=== PATIENT | female | born 1950 | race Caucasian/White ===

== ENCOUNTER 2019-07-19 12:58 | Inpatient (IN) | payer OTHER, MEDICAID ==
[2019-07-19] VITALS (7 sets, daily range): BP systolic 99–144; BP diastolic 57–90
[~2019-07-19] VITALS: Ht 162.6 cm; Wt 68.5 kg
[~2019-07-19 12:58] MED LIST: ASPIR 8181 MG PO; ATORVASTATIN CA40 MG PO; CHANTIX1 MG PO; HYDROCHLOROTHIA25 M2 PO; LEVAQUIN 750 M750 MG PO; LIPITOR 20 MG T20 M1 PO; LISINOPRIL10 MG PO; LOPRESSOR50 PO; SYNTHROID137 MCG PO
[2019-07-19] MEDS ORDERED: PLAVIX 75 MG TA75 MG PO (13:05)
[2019-07-19 13:50] LABS: ABSOLUTE BASOPHILS 0.1 thou/uL (0.0-0.2); ABSOLUTE EOSINOPHILS 0.3 thou/uL (0.0-0.7); ABSOLUTE LYMPHOCYTES 3.4 thou/uL (0.8-5.3); ABSOLUTE MONOCYTES 0.7 thou/uL (0.0-1.2); ABSOLUTE NEUTROPHILS 11.3 thou/uL (1.6-8.1); BASOPHILS 0.8 %; EOSINOPHILS 2.1 %; HEMATOCRIT 42.8 % (37.0-47.0); LYMPHOCYTES 21.5 %; MCH 30.8 pg (26.0-34.0); MCHC 34.9 g/dL (28.0-37.0); MCV 88.1 fL (80.0-100.0); MONOCYTES 4.1 %; MPV 7.3 fl. (7.2-11.1); NUCLEATED RBCS 0 /100WBC; PLATELET COUNT* 381 thou/uL (150-400); POLYS 71.5 %; RBC 4.86 mil/uL (4.20-5.00); RDW-CV 13.8 % (10.5-14.5); WBC 15.8 thou/uL (4.0-11.0)
[2019-07-19 13:55] LABS: APTT 26.3 Seconds (25.0-31.3); CALCIUM 9.4 mg/dL (8.5-10.1); INR 1.2; POTASSIUM 4.1 mmol/L (3.5-5.1)
[2019-07-19 14:08] LABS: ALBUMIN 4.1 g/dL (3.4-5.0); MAGNESIUM 1.5 mg/dL (1.8-2.4); TOTAL BILIRUBIN 0.5 mg/dL (<0.1-1.0); TOTAL PROTEIN 8.2 g/dL (6.4-8.2)
--- NOTE | 2019-07-19 14:19 | EKG ---
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 : 1950 Requested By: Tico Baker Order Number: [id number] MD: Juan Maurer Measurements Intervals [place] Rate: 116 P: 61 [place]: 151 QRS: 28 QRSD: 79 T: 64 QT: 335 QTc: 466 Interpretive Statements Sinus tachycardia early repolarization Artifact in lead(s) I,II,III,aVR,aVL,aVF Compared to ECG 02/06/2017 17:16:57 no change Electronically Signed On 07-19-2019 14:18:43 HOB MILL OPERATOR by Juan Maurer [email or web address] <ELECTRONICALLY SIGNED> By: Juan Maurer MD, FAC 07/19/19 1418 1316 1316 Juan Maurer MD, [facility] /EPI
[2019-07-19 14:33] LABS: INFLUENZA A ANTIGEN Negative (Negative); INFLUENZA B ANTIGEN Negative (Negative)
[2019-07-19 15:36] LABS: AMP/METHAMP Negative (Negative); BARBITURATES Negative (Negative); BENZODIAZEPINES Negative (Negative); COCAINE Negative (Negative); METHADONE Negative (Negative); OPIATES Negative (Negative); PCP Negative (Negative); THC Negative (Negative)
[2019-07-19] MEDS ORDERED: TOPROL XL50 MG PO (19:00)
[2019-07-19] MEDS ORDERED: ZETIA10 MG PO (19:01)
[2019-07-19] MEDS ORDERED: SPIRONOLACTONE25 MG PO (19:01)
[2019-07-19] MEDS ORDERED: PROAIR HFA8.5 GM INH (19:02)
[2019-07-19] MEDS ORDERED: LEVO-T100 MCG PO (19:02)
[2019-07-20] VITALS (17 sets, daily range): BP systolic 89–108; BP diastolic 42–62
[2019-07-20 04:59] LABS: HEMATOCRIT 38.4 % (37.0-47.0); HEMOGLOBIN 13.3 gm/dL (12.0-15.0); MCH 30.7 pg (26.0-34.0); MCHC 34.8 g/dL (28.0-37.0); MCV 88.2 fL (80.0-100.0); MPV 7.8 fl. (7.2-11.1); RBC 4.35 mil/uL (4.20-5.00); RDW-CV 13.7 % (10.5-14.5)
[2019-07-20 05:28] LABS: CHOLESTEROL 182 mg/dL (<200); HDL CHOLESTEROL 36 mg/dL (>40); LDL CHOLESTEROL 124 mg/dL (<100); TC:HDL 5.1 Ratio (Not establshd); TRIGLYCERIDE 114 mg/dL (<150); VLDL 23 mg/dL (<40)
[2019-07-20 05:29] LABS: SERUM ASSESSMENT CLEAR
[2019-07-20 05:34] LABS: ALBUMIN 3.5 g/dL (3.4-5.0); CALCIUM 9.2 mg/dL (8.5-10.1); CREATININE 0.8 mg/dL (0.6-1.3); MAGNESIUM 1.7 mg/dL (1.8-2.4); PHOSPHORUS* 4.1 mg/dL (2.5-4.9); POTASSIUM 4.4 mmol/L (3.5-5.1)
--- NOTE | 2019-07-20 08:56 | CON ---
[address] [address] CONSULTATION Name: SEAN SWARTZ Room: [address] IN .R.#: [id number] Admission: 07/19/19 Attend Phys: Corey Babcock Discharge: Date of : 52 Report #: [id number] THIS REPORT FOR: //name// cc: Melina Cortez Tara DO ~ THIS REPORT FOR: //name// CC: Corey Verma DATE OF SERVICE: 07/19/2019 CARDIOLOGY CONSULTATION HISTORY OF PRESENT ILLNESS: The patient is a 68-year-old single white female who I was asked to see in the Emergency Room today after she complained of chest pain. The old records are not available. However, the patient states that she presented in February with chest pain. She was admitted to [facility]. The next day, she had a stent placed in her LAD that was 2.5 mm x 15 mm long. This was performed via the radial approach. She has been on aspirin and Plavix since that time. Unfortunately, she continues to smoke. She does get short of breath with exertion, and has a cough. Recently, her shortness of breath has gotten worse. She does note occasional tightness in her chest. It is not related to activity. She has had no bleeding. She finally came to the Emergency Room today and was admitted. She does complain of fatigue. She has occasional flutter in her heart, but no syncope. She has had no edema. 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 She has had a history of hysterectomy, cholecystectomy, appendectomy, tubal ligation, broken ankle requiring surgery, hypertension, and hyperlipidemia. CURRENT MEDICATIONS: Consist of aspirin, Plavix, hydrochlorothiazide, Synthroid, lisinopril, metoprolol. ALLERGIES: SHE HAS ALLERGY TO MORPHINE. FAMILY HISTORY: Negative for heart disease. SOCIAL HISTORY: She is , lives in [place]. Smokes less than half pack of cigarettes a day. No alcohol abuse. REVIEW OF SYSTEMS: No history of stroke. She does have a history of COPD. She is on oxygen at nighttime, uses a nebulizer and inhaler. No history of liver disease, kidney disease, cancer, psychiatric illness, [place] [address] CONSULTATION Name: SEAN SWARTZ Room: [address]#: [id number] Admission: 07/19/19 Attend Phys: Corey Babcock Discharge: Date of : 52 Report #: [id number] PHYSICAL EXAMINATION: GENERAL: Revealed a middle-aged female, who appeared in no acute distress. VITAL SIGNS: She had a blood pressure of 100/60, pulse is 100. She is afebrile. HEENT: She was anicteric. Conjunctivae pink. Mucous membranes moist. NECK: Veins nondistended. No carotid bruits. CHEST: Clear to auscultation. CARDIOVASCULAR: Regular rate and rhythm. ABDOMEN: Soft. EXTREMITIES: Had no edema. Posterior tibial pulse 2+ bilaterally. SKIN: Warm and dry. NEUROLOGIC: Nonfocal. RADIOLOGICAL DATA: ECG shows a sinus rhythm. There was evidence of previous anterior infarction with nonspecific ST-T wave changes noted. Her workup in the Emergency Room today, she had portable chest x-ray that showed heart size and some atelectasis. CT scan of the chest using a PE protocol showed evidence of COPD with blebs, no pulmonary embolus. LABORATORY WORK: Sodium 142, creatinine 1.0, glucose 186. Liver function studies were normal. Troponin elevated at 0.68. White blood cell count 15.8, hemoglobin 15.0. IMPRESSION AND RECOMMENDATIONS: 1. Non-ST elevation myocardial infarction. Previous stent. Recommend repeat cardiac catheterization. 2. Hypertension. The patient has been on a beta david and JADYN inhibitor. 3. Hyperlipidemia. The patient is on a statin drug. 4. Chronic obstructive pulmonary disease. 5. Tobacco abuse. <ELECTRONICALLY SIGNED> By: Juan Maurer MD, FACC 07/20/19 0856 1615 0246Dailya Maurer MD, FACC /nt
--- NOTE | 2019-07-20 09:57 | EKG ---
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: SANDY : 1950 Requested By: Juan Maurer Order Number: [id number] Vitor MD: Juan Maurer Measurements Intervals [place] Rate: 95 P: 54 WI: 155 QRS: 10 QRSD: 92 T: 73 QT: 365 QTc: 459 Interpretive Statements Sinus rhythm Compared to ECG 07/19/2019 13:16:37 Sinus tachycardia no longer present Early repolarization no longer present Electronically Signed On 07-20-2019 9:56:[address] MAG[address]RATE by Juan Maurer [email or web address] <ELECTRONICALLY SIGNED> By: Juan Maurer MD, FAC 07/20/19 0956 4 4 Juan Maurer MD, [facility] /EPI
[2019-07-21] VITALS (16 sets, daily range): BP systolic 94–192; BP diastolic 50–102
[2019-07-21 02:07] LABS: GLYCOHEMOGLOBIN (HGB A1C) 5.9 % (4.8-5.6)
[2019-07-21 05:41] LABS: ABSOLUTE BASOPHILS 0.1 thou/uL (0.0-0.2); ABSOLUTE EOSINOPHILS 0.1 thou/uL (0.0-0.7); ABSOLUTE LYMPHOCYTES 1.5 thou/uL (0.8-5.3); ABSOLUTE MONOCYTES 0.9 thou/uL (0.0-1.2); ABSOLUTE NEUTROPHILS 13.7 thou/uL (1.6-8.1); BASOPHILS 0.5 %; EOSINOPHILS 0.7 %; HEMATOCRIT 37.4 % (37.0-47.0); HEMOGLOBIN 12.9 gm/dL (12.0-15.0); LYMPHOCYTES 9.2 %; MCH 30.6 pg (26.0-34.0); MCHC 34.5 g/dL (28.0-37.0); MCV 88.5 fL (80.0-100.0); MONOCYTES 5.4 %; MPV 7.7 fl. (7.2-11.1); NUCLEATED RBCS 0 /100WBC; PLATELET COUNT* 264 thou/uL (150-400); POLYS 84.2 %; RBC 4.22 mil/uL (4.20-5.00); RDW-CV 13.8 % (10.5-14.5); WBC 16.3 thou/uL (4.0-11.0)
[2019-07-21 05:48] LABS: CALCIUM 8.3 mg/dL (8.5-10.1); CREATININE 0.8 mg/dL (0.6-1.3); POTASSIUM 3.5 mmol/L (3.5-5.1)
--- NOTE | 2019-07-21 12:10 | EKG ---
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: HARDY : 1950 Requested By: Corey Romero Order Number: [id number] Reading MD: Juan Maurer Measurements Intervals [place] Rate: 140 P: 53 [place]: 179 QRS: 24 QRSD: 84 T: 71 QT: 246 QTc: 376 Interpretive Statements Sinus tachycardia poor r wave progression ST elevation, consider early repolarization Baseline wander in lead(s) I,III,aVL Compared to ECG 07/20/2019 08:15:07 Sinus rhythm no longer present Electronically Signed On 07-21-2019 12:09:11 MEDICAL CHIEF TECHNICIAN by Juan Maurer [email or web address] <ELECTRONICALLY SIGNED> By: Juan Maurer MD, [facility] 07/21/19 1209 0356 Juan Maurer MD, [facility] /EPI
--- NOTE | 2019-07-21 13:01 | CARD ---
[address] [address] CARDIAC CATH REPORT Name: SEAN SWARTZ Room: [address] IN [facility]#: [id number] Admission: 07/19/19 Attend Phys: Corey Babcock Discharge: Date of : 52 Report #: [id number] THIS REPORT FOR: //name// cc: Melina Cortez Tara DO ~ THIS REPORT FOR: //name// APPROVED REPORT Study performed: 07/20/2019 12:52:40 Patient Details Patient Status: In-Patient Room #: 228 The patient is a 68 year-old female Event Personnel Sung Merritt RTR Monitor, Laurie Hedrick RN RN, Georgiana Falk RTR Scrub, Fransico Chandra Eligibility Supervisor Procedures Performed Right radial artery access, Left Heart Cath w/or w/o Coronaries, Hemostasis with Vasc band Admission/Lab Medications/Medications given during procedure Fentanyl IV 25 mcg, Midazolam (Versed) IV 1 mg, Lidocaine Subcut 4 ml, Nitroglycerin IA 400 mcg, Verapamil IA 5 mg Procedure Narrative The patient was brought electively to the Cardiac Catheterization Laboratory and was prepped and draped in a sterile manner. The right wrist was infiltrated with 2% Lidocaine subcutaneous anesthesia. A 6F Slender Glidesheath sheath was inserted into the right radial artery. Coronary angiography was performed using coronary diagnostic catheters. The right coronary system was accessed and visualized with a Diagnostic [place] 4.0 6fr catheter. The left coronary system was accessed and visualized with a Diagnostic [place] 4.0 6fr catheter. The left ventricle was accessed and visualized with a Diagnostic [place] 4.0 6fr catheter. The patient tolerated the procedure well and there were no complications associated with the procedure. There was no hematoma. Radial artery hemostasis with a radial Vasc band. Intraoperative Conscious Sedation Sedation start time: 1349 Case end Time: 1405 [place] [address] CARDIAC CATH REPORT Name: SEAN SWRATZ Room: [address] IN [facility].#: [id number] Admission: 07/19/19 Attend Phys: Corey Babcock Discharge: Date of : 52 Report #: [id number] Fentanyl 50 mcg Versed 1 mg Fluoro Time: 4.3 minutes Dose: DAP 41732 cGycm2 738.98 mGy Contrast Type and Amount: Visipaque 65 ml Coronary Angiography The patient's coronary anatomy is right dominant. Diagnostic Cath Left Main The left main coronary artery is normal and bifurcates into a left anterior descending and circumflex coronary artery. LAD There is mild 10% plaquing in the mid and distal LAD. There is a widely patent stents in the mid LAD. Diagonal 1 The first diagonal branch is normal. Diagonal 2 The second diagonal branches 10% plaque proximally. Circumflex The circumflex was coronary artery is normal in its proximal mid and distal portion. OM1 A first obtuse marginal branch is 10% narrowing proximally. Right Coronary The right coronary artery is 30% narrowed proximally 50% narrowed in the midportion. R PDA The right PDA has a 50% proximal narrowing and 10% mid narrowing. RPLV The posterior lateral LV branch has 20% proximal narrowing. Hemodynamics The aortic pressure is 97/64 mmHg with a mean of 80 mmHg. The left ventricular pressure is 97/11 mmHg with a mean of mmHg. The left ventricular end diastolic pressure is 24 mmHg. Conclusion 1. Nonocclusive coronary artery disease as outlined above. 2. Widely patent stents in the mid left anterior descending coronary artery. 3. Elevated left jugular end-diastolic pressure consistent with acute diastolic heart failure[place] [address] CARDIAC CATH REPORT Name: SEAN SWARTZ Room: [address] IN [facility]#: [id number] Admission: 07/19/19 Attend Phys: Corey Babcock Discharge: Date of : 52 Report #: [id number] 1. Continue medical management and aggressive risk factor modification. <ELECTRONICALLY SIGNED> By: Fransico Chandra MD, FACC 07/21/19 1300 1300 Merry Chandra MD, FACC /INF
[2019-07-22 04:20] VITALS: BP 95/58
[2019-07-22 08:00] VITALS: BP 107/56
[2019-07-22 08:37] LABS: HEMATOCRIT 39.1 % (37.0-47.0); HEMOGLOBIN 13.9 gm/dL (12.0-15.0); MCH 31.2 pg (26.0-34.0); MCHC 35.7 g/dL (28.0-37.0); MCV 87.4 fL (80.0-100.0); MPV 7.3 fl. (7.2-11.1); RBC 4.47 mil/uL (4.20-5.00); RDW-CV 13.9 % (10.5-14.5); WBC 10.3 thou/uL (4.0-11.0)
[2019-07-22 08:46] LABS: ALBUMIN 3.3 g/dL (3.4-5.0); CALCIUM 8.8 mg/dL (8.5-10.1); CREATININE 0.7 mg/dL (0.6-1.3); MAGNESIUM 1.6 mg/dL (1.8-2.4); PHOSPHORUS* 3.7 mg/dL (2.5-4.9); POTASSIUM 3.5 mmol/L (3.5-5.1)
[2019-07-22 12:00] VITALS: BP 110/57
[2019-07-22] MEDS ORDERED: GLUCOPHAGE500 MG PO (12:31)
[2019-07-22] MEDS ORDERED: PULMICORT0.5 MG/2 M INH (12:31)
[2019-07-22] MEDS ORDERED: MEDROL DOSPAK21 TA1 PO (12:31)
[2019-07-22] MEDS ORDERED: BUSPIRONE HCL5 MG PO (12:31)
[2019-07-22] MEDS ORDERED: MUCINEX600 MG PO (12:31)
[2019-07-22] MEDS ORDERED: POTASSIUM20 PO (12:33)
[2019-07-22] MEDS ORDERED: LASIX 40 MG TAB40 MG PO (12:33)
[2019-07-22 15:03] VITALS: BP 110/57
[2019-07-22 17:11] VITALS: BP 116/58
== END 2019-07-22 18:06 | disposition home health service (06) | DRG 280 ==
LOC: M.ERS 12:58 → M.2W 14:18 → M.TBA-ER 14:18 → M.2W 17:26
PROVIDERS: Emergency Medicine Emergency Medical Services; Internal Medicine; ADMIT Family Medicine
PROC: B211YZZ Fluoroscopy of Multiple Coronary Arteries using Other Contrast (ICD-10-PCS; principal; 2019-07-20)
PROC: 4A023N7 Measurement of Cardiac Sampling and Pressure, Left Heart, Percutaneous Approach (ICD-10-PCS; principal; 2019-07-20)
DX: I21.4 Non-ST elevation (NSTEMI) myocardial infarction (principal); R65.11 Systemic inflammatory response syndrome (SIRS) of non-infectious origin with acute organ dysfunction; I50.33 Acute on chronic diastolic (congestive) heart failure; I25.110 Atherosclerotic heart disease of native coronary artery with unstable angina pectoris; E03.9 Hypothyroidism, unspecified; E78.5 Hyperlipidemia, unspecified; F17.210 Nicotine dependence, cigarettes, uncomplicated; J44.9 Chronic obstructive pulmonary disease, unspecified; E83.42 Hypomagnesemia; I73.9 Peripheral vascular disease, unspecified; R73.03 Prediabetes; I10 Essential (primary) hypertension; I65.29 Occlusion and stenosis of unspecified carotid artery; Z66 Do not resuscitate; Z95.5 Presence of coronary angioplasty implant and graft; Z90.710 Acquired absence of both cervix and uterus; Z90.49 Acquired absence of other specified parts of digestive tract; I25.2 Old myocardial infarction; Z88.6 Allergy status to analgesic agent; Z71.6 Tobacco abuse counseling; Z99.81 Dependence on supplemental oxygen; Z79.82 Long term (current) use of aspirin; Z79.899 Other long term (current) drug therapy

== ENCOUNTER 2020-04-12 23:57 | Inpatient (IN) | payer OTHER, MEDICAID ==
[~2020-04-12] VITALS: Ht 165.1 cm; Wt 86.7 kg
[~2020-04-12 23:57] MED LIST changes: +BUSPIRONE HCL5 MG PO; +GLUCOPHAGE500 MG PO; +LASIX 40 MG TAB40 MG PO; +LEVO-T100 MCG PO; +MEDROL DOSPAK21 TA1 PO; +MUCINEX600 MG PO; +PLAVIX 75 MG TA75 MG PO; +POTASSIUM20 PO; +PROAIR HFA8.5 GM INH; +PULMICORT0.5 MG/2 M INH; +SPIRONOLACTONE25 MG PO; +TOPROL XL50 MG PO; +ZETIA10 MG PO
[2020-04-13] VITALS (9 sets, daily range): BP systolic 85–168; BP diastolic 52–71
[2020-04-13] MEDS ORDERED: BIDIL TABLET1 EACH PO (00:15)
[2020-04-13 00:45] LABS: ABSOLUTE EOSINOPHILS 0.5 thou/uL (0.0-0.7); ABSOLUTE LYMPHOCYTES 3.1 thou/uL (0.8-5.3); ABSOLUTE MONOCYTES 0.8 thou/uL (0.0-1.2); ABSOLUTE NEUTROPHILS 6.1 thou/uL (1.6-8.1); BASOPHILS 0.4 %; EOSINOPHILS 4.7 %; HEMATOCRIT 36.1 % (37.0-47.0); HEMOGLOBIN 12.2 gm/dL (12.0-15.0); LYMPHOCYTES 29.3 %; MCH 30.2 pg (26.0-34.0); MCHC 33.8 g/dL (28.0-37.0); MCV 89.3 fL (80.0-100.0); MONOCYTES 7.8 %; MPV 6.9 fl. (7.2-11.1); NUCLEATED RBCS 0 /100WBC; PLATELET COUNT* 308 thou/uL (150-400); POLYS 57.8 %; RBC 4.04 mil/uL (4.20-5.00); WBC 10.6 thou/uL (4.0-11.0)
[2020-04-13 00:57] LABS: CALCIUM 8.5 mg/dL (8.5-10.1); CREATININE 1.1 mg/dL (0.6-1.3)
[2020-04-13 01:08] LABS: ALBUMIN 3.3 g/dL (3.4-5.0); TOTAL BILIRUBIN 0.5 mg/dL (<0.1-1.0); TOTAL PROTEIN 7.3 g/dL (6.4-8.2)
[2020-04-13 03:10] LABS: URINE BILIRUBIN NEGATIVE (Negative); URINE BLOOD NEGATIVE (Negative); URINE CLARITY CLEAR; URINE COLOR YELLOW; URINE GLUCOSE-RANDOM NEGATIVE (Negative); URINE KETONES NEGATIVE (Negative); URINE LEUKOCYTES-REFLEX NEGATIVE (Negative); URINE NITRITE-REFLEX NEGATIVE (Negative); URINE PROTEIN NEGATIVE (Negative); URINE SPECIFIC GRAVITY <= 1.005 (1.005-1.030); URINE UROBILINOGEN 0.2 E.U./dl (0.2-1.0)
[2020-04-13] MEDS ORDERED: BUSPIRONE HCL10 MG PO (05:59)
[2020-04-13] MEDS ORDERED: FUROSEMIDE 40 M40 MG PO (06:00)
[2020-04-14 03:54] LABS: ABSOLUTE LYMPHOCYTES 1.3 thou/uL (0.8-5.3); ABSOLUTE MONOCYTES 0.1 thou/uL (0.0-1.2); ABSOLUTE NEUTROPHILS 7.4 thou/uL (1.6-8.1); BASOPHILS 0.2 %; HEMATOCRIT 38.4 % (37.0-47.0); HEMOGLOBIN 12.8 gm/dL (12.0-15.0); LYMPHOCYTES 14.7 %; MCH 29.4 pg (26.0-34.0); MCHC 33.3 g/dL (28.0-37.0); MCV 88.4 fL (80.0-100.0); NUCLEATED RBCS 0 /100WBC; PLATELET COUNT* 306 thou/uL (150-400); POLYS 84.1 %; RBC 4.35 mil/uL (4.20-5.00); RDW-CV 13.7 % (10.5-14.5); WBC 8.8 thou/uL (4.0-11.0)
[2020-04-14 04:09] LABS: ANION GAP 5 mmol/L (7-16); BUN 14 mg/dL (7-18); CALCIUM 8.7 mg/dL (8.5-10.1); CHLORIDE 104 mmol/L (98-107); CO2 31 mmol/L (21-32); CREATININE 0.8 mg/dL (0.6-1.3); GLUCOSE 214 mg/dL (70-99); POTASSIUM 4.5 mmol/L (3.5-5.1); SODIUM 140 mmol/L (136-145); TROPONIN-I LEVEL <0.06 ng/mL (<0.06)
[2020-04-14 04:14] VITALS: BP 136/60
--- NOTE | 2020-04-14 05:58 | NUR ---
ASSUMED CARE OF PT AFTER REPORT AT 1930. PT A&OX4. VSS. PHYSICAL ASSESSMENT COMPLETED AND CHARTED. PT ON 4L NC. PT TRACING SR ON TELE. PT DENIES ANY PAIN. PT REQUESTED MEDICATION FOR COUGH-DR AGUERO MADE STONE WITH NEW ORDER. PT ABLE TO SLEEP WELL ON BED. CALL LIGHT WITHIN REACH.
[2020-04-14 07:30] VITALS: BP 117/50
[2020-04-14] MEDS ORDERED: PREDNISONE 10 M10 MG PO (09:36)
[2020-04-14] MEDS ORDERED: DOXYCYCLINE 10100 MG PO (09:36)
[2020-04-14] MEDS ORDERED: OMEPRAZOLE40 MG PO (09:36)
[2020-04-14 11:28] VITALS: BP 106/44
[2020-04-14 13:56] VITALS: BP 106/44
--- NOTE | 2020-04-16 08:29 | EKG ---
[place] [address] ELECTROCARDIOGRAM REPORT Name: SEAN SWARTZ Room: [address] IN .R.#: [id number] Admission: 04/13/20 Attend Phys: Teo Hillman Discharge: 04/14/20 Date of : 52 Date of Service: 04/13/20 0036 Report #: [id number] THIS REPORT FOR: //name// [facility] ED Test Date: 2020-04-13 Test Time: 00:36:08 Pat Name: SEAN SWARTZ Department: Room: [facility] Gender: F Speech Clinician: blessing : 1950 Requested By: Alessandra Vazquez Order Number: [id number] MD: Paul Fuentes Measurements Intervals [place] Rate: 86 P: 102 [place]: 169 QRS: 44 QRSD: 82 T: -24 QT: 386 QTc: 462 Interpretive Statements Sinus rhythm Multiple ventricular premature complexes Borderline repolarization abnormality Compared to ECG 07/21/2019 03:56:12 Ventricular premature complex(es) now present Sinus tachycardia no longer present Poor R-wave progression no longer present ST (T wave) deviation no longer present Electronically Signed On 04-16-2020 8:29:42 FLOOR FINISHER HELPER by Paul Fuentes [email or web address] <ELECTRONICALLY SIGNED> By: Renuka Fuentes MD, [facility] 04/16/20 0829 Renuka Fuentes MD, [facility] /EPI
== END 2020-04-14 16:23 | disposition home or self-care (01) | DRG 177 ==
LOC: M.ERS 23:57 → M.TBA-ER 04-13 01:14 → M.2W 04-13 05:20
PROVIDERS: Emergency Medicine; Internal Medicine; ADMIT Internal Medicine; ATTEND Internal Medicine
DX: J15.6 Pneumonia due to other Gram-negative bacteria (principal); J96.21 Acute and chronic respiratory failure with hypoxia; J96.22 Acute and chronic respiratory failure with hypercapnia; J44.0 Chronic obstructive pulmonary disease with (acute) lower respiratory infection; I95.9 Hypotension, unspecified; I11.0 Hypertensive heart disease with heart failure; I25.10 Atherosclerotic heart disease of native coronary artery without angina pectoris; E03.9 Hypothyroidism, unspecified; I50.9 Heart failure, unspecified; F17.210 Nicotine dependence, cigarettes, uncomplicated; E78.00 Pure hypercholesterolemia, unspecified; Z20.828 Contact with and (suspected) exposure to other viral communicable diseases; Z99.81 Dependence on supplemental oxygen; Z90.49 Acquired absence of other specified parts of digestive tract; I25.2 Old myocardial infarction; Z90.710 Acquired absence of both cervix and uterus; Z79.82 Long term (current) use of aspirin; Z79.01 Long term (current) use of anticoagulants; Z79.84 Long term (current) use of oral hypoglycemic drugs; Z79.899 Other long term (current) drug therapy; Z88.8 Allergy status to other drugs, medicaments and biological substances; Z88.5 Allergy status to narcotic agent

== ENCOUNTER 2020-05-17 18:39 | Inpatient (IN) | payer OTHER, MEDICAID ==
[~2020-05-17] VITALS: Ht 160 cm; Wt 80.3 kg
[~2020-05-17 18:39] MED LIST changes: +BIDIL TABLET1 EACH PO; +BUSPIRONE HCL10 MG PO; +DOXYCYCLINE 10100 MG PO; +FUROSEMIDE 40 M40 MG PO; +OMEPRAZOLE40 MG PO; +PREDNISONE 10 M10 MG PO
[2020-05-17 18:43] VITALS: BP 165/85
[2020-05-17 19:14] LABS: ABSOLUTE BASOPHILS 0.1 thou/uL (0.0-0.2); ABSOLUTE EOSINOPHILS 0.3 thou/uL (0.0-0.7); ABSOLUTE LYMPHOCYTES 2.7 thou/uL (0.8-5.3); ABSOLUTE MONOCYTES 0.7 thou/uL (0.0-1.2); ABSOLUTE NEUTROPHILS 8.9 thou/uL (1.6-8.1); EOSINOPHILS 2.4 %; HEMATOCRIT 38.1 % (37.0-47.0); HEMOGLOBIN 12.6 gm/dL (12.0-15.0); MCH 29.9 pg (26.0-34.0); MCHC 33.2 g/dL (28.0-37.0); MCV 90.1 fL (80.0-100.0); MONOCYTES 5.4 %; MPV 6.8 fl. (7.2-11.1); NUCLEATED RBCS 0 /100WBC; PLATELET COUNT* 330 thou/uL (150-400); POLYS 70.2 %; RBC 4.23 mil/uL (4.20-5.00); RDW-CV 14.3 % (10.5-14.5); WBC 12.7 thou/uL (4.0-11.0)
[2020-05-17 19:24] LABS: CALCIUM 9.2 mg/dL (8.5-10.1); CREATININE 1.3 mg/dL (0.6-1.3); POTASSIUM 3.7 mmol/L (3.5-5.1)
[2020-05-17 19:26] LABS: APTT 24.2 Seconds (25.0-31.3); INR 1.2; PROTIME 12.3 Seconds (9.20-11.50)
[2020-05-17 19:37] LABS: ALBUMIN 3.6 g/dL (3.4-5.0); MAGNESIUM 1.5 mg/dL (1.8-2.4); TOTAL BILIRUBIN 0.4 mg/dL (<0.1-1.0); TOTAL PROTEIN 7.7 g/dL (6.4-8.2)
[2020-05-17 22:10] VITALS: BP 120/76
[2020-05-17 22:20] VITALS: BP 123/66
[2020-05-17] MEDS ORDERED: ABILIFY 5 MG TAB5 M1 PO (22:43)
[2020-05-17] MEDS ORDERED: COLACE100 MG PO (22:44)
[2020-05-17] MEDS ORDERED: NEURONTIN 300M300 M2 PO (22:46)
[2020-05-17] MEDS ORDERED: BIDIL TABLET1 EACH PO (22:47)
[2020-05-17] MEDS ORDERED: MELATONIN10 M3 PO (22:48)
[2020-05-17] MEDS ORDERED: TOPROL XL50 MG PO (22:48)
[2020-05-17] MEDS ORDERED: MONTELUKAST SODI4 M1 PO (22:49)
[2020-05-18 04:00] VITALS: BP 97/45
[2020-05-18 07:30] VITALS: BP 107/56
[2020-05-18 09:42] LABS: URINE BILIRUBIN NEGATIVE (Negative); URINE BLOOD NEGATIVE (Negative); URINE CLARITY CLEAR; URINE COLOR YELLOW; URINE GLUCOSE-RANDOM NEGATIVE (Negative); URINE KETONES NEGATIVE (Negative); URINE LEUKOCYTES NEGATIVE (Negative); URINE NITRITE NEGATIVE (Negative); URINE PROTEIN NEGATIVE (Negative); URINE SPECIFIC GRAVITY 1.025 (1.005-1.030); URINE UROBILINOGEN 0.2 E.U./dl (0.2-1.0)
--- NOTE | 2020-05-18 12:22 | EKG ---
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 : 1950 Requested By: Yemi Valenzuela Order Number: [id number] MD: Fransico Chandra Measurements Intervals [place] Rate: 102 P: -1 [place]: 203 QRS: 37 QRSD: 84 T: -32 QT: 355 QTc: 463 Interpretive Statements Sinus tachycardia Artifact in lead(s) I,II,III,aVR,aVL,aVF Compared to ECG 04/13/2020 00:36:08 Sinus rhythm no longer present Ventricular premature complex(es) no longer present Electronically Signed On 05-18-2020 12:21:48 GROUND LAYER by Frasnico Chandra [email or web address] <ELECTRONICALLY SIGNED> By: Fransico Chandra MD, FACC 05/18/20 1221 44 44 Fransico Chandra MD, FAC /EPI
[2020-05-18 12:26] VITALS: BP 122/50
[2020-05-18 16:59] VITALS: BP 105/49
[2020-05-18 20:20] VITALS: BP 131/83
[2020-05-19 00:03] VITALS: BP 98/43
[2020-05-19 04:21] LABS: HEMOGLOBIN 11.3 gm/dL (12.0-15.0); MCH 29.5 pg (26.0-34.0); MCHC 33.3 g/dL (28.0-37.0); MCV 88.6 fL (80.0-100.0); MPV 7.3 fl. (7.2-11.1); NUCLEATED RBCS 0 /100WBC; PLATELET COUNT* 302 thou/uL (150-400); RBC 3.83 mil/uL (4.20-5.00); RDW-CV 14.4 % (10.5-14.5); WBC 15.5 thou/uL (4.0-11.0)
[2020-05-19 04:35] LABS: ALBUMIN 3.1 g/dL (3.4-5.0); CALCIUM 8.9 mg/dL (8.5-10.1); POTASSIUM 3.9 mmol/L (3.5-5.1); TOTAL BILIRUBIN 0.4 mg/dL (<0.1-1.0); TOTAL PROTEIN 6.7 g/dL (6.4-8.2)
[2020-05-19 05:24] VITALS: BP 108/47
[2020-05-19 05:53] LABS: ABSOLUTE EOSINOPHILS 0.2 thou/uL (0.0-0.7); ABSOLUTE LYMPHOCYTES 1.4 thou/uL (0.8-5.3); ABSOLUTE MONOCYTES 0.2 thou/uL (0.0-1.2); ABSOLUTE NEUTROPHILS 13.8 thou/uL (1.6-8.1); PLATELET ESTIMATE ADEQUATE
[2020-05-19 05:54] LABS: TOXIC GRANULATION 1+
[2020-05-19 08:10] VITALS: BP 120/62
[2020-05-19 12:49] VITALS: BP 125/63
[2020-05-19 16:55] VITALS: BP 110/56
[2020-05-20] VITALS: BP 126/56
[2020-05-20 04:00] VITALS: BP 130/63
[2020-05-20 05:09] LABS: ABSOLUTE LYMPHOCYTES 2.7 thou/uL (0.8-5.3); ABSOLUTE NEUTROPHILS 11.5 thou/uL (1.6-8.1); BASOPHILS 0.2 %; EOSINOPHILS 0.2 %; HEMATOCRIT 33.5 % (37.0-47.0); HEMOGLOBIN 11.5 gm/dL (12.0-15.0); LYMPHOCYTES 17.8 %; MCH 30.3 pg (26.0-34.0); MCHC 34.3 g/dL (28.0-37.0); MCV 88.4 fL (80.0-100.0); MONOCYTES 6.3 %; NUCLEATED RBCS 0 /100WBC; PLATELET COUNT* 310 thou/uL (150-400); POLYS 75.5 %; RBC 3.79 mil/uL (4.20-5.00); RDW-CV 14.2 % (10.5-14.5); WBC 15.2 thou/uL (4.0-11.0)
[2020-05-20 05:50] LABS: CALCIUM 8.9 mg/dL (8.5-10.1); POTASSIUM 3.4 mmol/L (3.5-5.1); TOTAL BILIRUBIN 0.4 mg/dL (<0.1-1.0); TOTAL PROTEIN 6.5 g/dL (6.4-8.2)
[2020-05-20 08:20] VITALS: BP 143/65
[2020-05-20 16:30] VITALS: BP 142/72
[2020-05-21 04:32] VITALS: BP 133/85
[2020-05-21 08:00] VITALS: BP 144/76
[2020-05-21] MEDS ORDERED: CEFDINIR300 MG PO (09:15)
[2020-05-21] MEDS ORDERED: PREDNISONE 10 M10 MG PO (09:17)
[2020-05-21] MEDS ORDERED: XANAX 0.25 MG0.25 MG PO (09:21)
[2020-05-21 11:07] VITALS: BP 144/76
[2020-05-21 11:15] VITALS: BP 144/76
== END 2020-05-21 12:35 | disposition home or self-care (01) | DRG 177 ==
LOC: M.ERS 18:39 → M.ORTHSURG 20:04 → M.TBA-ER 20:04 → M.ORTHSURG 21:49
PROVIDERS: Family Medicine; Internal Medicine; ADMIT Internal Medicine; ATTEND Internal Medicine
DX: J15.6 Pneumonia due to other Gram-negative bacteria (principal); J96.20 Acute and chronic respiratory failure, unspecified whether with hypoxia or hypercapnia; J44.1 Chronic obstructive pulmonary disease with (acute) exacerbation; J44.0 Chronic obstructive pulmonary disease with (acute) lower respiratory infection; Z88.5 Allergy status to narcotic agent; E03.9 Hypothyroidism, unspecified; I11.0 Hypertensive heart disease with heart failure; I50.9 Heart failure, unspecified; F17.200 Nicotine dependence, unspecified, uncomplicated; E78.00 Pure hypercholesterolemia, unspecified; Z20.828 Contact with and (suspected) exposure to other viral communicable diseases; Z85.118 Personal history of other malignant neoplasm of bronchus and lung; Z90.49 Acquired absence of other specified parts of digestive tract; Z90.710 Acquired absence of both cervix and uterus; I25.2 Old myocardial infarction; Z79.01 Long term (current) use of anticoagulants; Z79.82 Long term (current) use of aspirin; Z79.899 Other long term (current) drug therapy; Z88.8 Allergy status to other drugs, medicaments and biological substances